=== PATIENT | male | born 1990 | race Caucasian/White ===

== ENCOUNTER 2016-04-30 10:33 | Emergency (ER) | payer SELFPAY ==
[2016-04-30] MEDS ORDERED: ONDANSETRON ODT 4 MG TABLET TL STA (12:48)
[2016-04-30] MEDS ORDERED: IBUPROFEN 800 MG TABLET PO STA (12:48)
[2016-04-30] MEDS ORDERED: OSELTAMIVIR 75 MG CAPSULE PO STA (12:49)
[2016-04-30] MEDS ORDERED: ONDANSETRON ODT 4 MG TABLET ONE (12:55)
[2016-04-30] MEDS ORDERED: IBUPROFEN 800 MG TABLET PO ONE (12:56)
[2016-04-30] MEDS ORDERED: OSELTAMIVIR 75 MG CAPSULE PO ONE (12:56)
== END 2016-04-30 13:19 | disposition home or self-care (01) ==
DX: J10.1 Influenza due to other identified influenza virus with other respiratory manifestations (principal)
CPT/HCPCS: 71020; 87275; 87276; 99283; 99284; A9270; Q0162

== ENCOUNTER 2016-09-12 06:19 | Emergency (ER) | payer SELFPAY ==
[2016-09-12] MEDS ORDERED: DEXAMETHASONE 10 MG/ML VIAL PO STA (06:32)
[2016-09-12] MEDS ORDERED: IBUPROFEN 800 MG TABLET PO STA (06:32)
[2016-09-12] MEDS ORDERED: DEXAMETHASONE 10 MG/ML VIAL ONE (06:34)
[2016-09-12] MEDS ORDERED: IBUPROFEN 800 MG TABLET PO ONE (06:34)
--- NOTE | 2016-09-12 06:35 | ED Physician Documentation ---
PD HPI HEENT - Stated complaint Stated Complaint: SOA - Chief complaint Chief Complaint: Heent - History obtained from History obtained from: Patient - History of Present Illness Timing - onset: Today Timing - details: Still present in ED Location: Right ear, Throat Worsens: Swalllowing Associated symptoms: Headache. No: Fever, Cough Similar symptoms before: Has not had sx before - Additional information Additional information: The patient is an otherwise healthy 26-year-old male who presents with sore throat that started this morning. He reports associated pain in his right ear as well as headache. He denies cough or shortness of breath. He reports mild nausea, without vomiting or abdominal pain. He denies history of similar symptoms in the past. His cousin reported similar symptoms earlier this week. Review of Systems Constitutional: denies: Fever Eyes: denies: Irritation Ears: reports: Ear pain (Right ear) Nose: denies: Congestion Throat: reports: Sore throat Cardiac: denies: Chest pain / pressure Respiratory: denies: Dyspnea, Cough GI: reports: Nausea. denies: Abdominal Pain, Vomiting : denies: Dysuria Skin: denies: Rash Musculoskeletal: denies: Back pain Neurologic: reports: Headache PD PAST MEDICAL HISTORY - Past Medical History Cardiovascular: None Respiratory: None Neuro: None Endocrine/Autoimmune: None - Present Medications Home Medications: Ambulatory Orders Medication Instructions Recorded Confirmed Azithromycin [Zithromax] 250 mg PO DAILY #6 tablet 09/12/16 Neomycin/Polymyx/Hc Otic Drops 4 drops RIGHTEAR QID #1 bottle 09/12/16 [Cortisporin Ear Susp] Prednisone 20 mg PO DAILY #10 tablet 09/12/16 - Allergies Allergies/Adverse Reactions: Allergies Allergy/AdvReac Type Severity Reaction Status Date / Time No Known Drug Allergies Allergy Verified 04/30/16 10:51 - Social History Does the pt smoke?: Yes Smoking Status: Current every day smoker PD ED PE NORMAL - Vitals Vital signs reviewed: Yes (Borderline hypertension initially.) - General General: Alert and oriented X 3, Well developed/nourished - HEENT HEENT: Atraumatic, PERRL, EOMI, Other (Oropharynx is erythematous without exudates. Right external ear canal is positive for otitis externa. Left tympanic membrane and external auditory canal are normal.) - Neck Neck: Supple, no meningeal sign, Other (Enlarged anterior cervical nodes bilaterally.) - Cardiac Cardiac: RRR, No murmur - Respiratory Respiratory: No respiratory distress, Clear bilaterally - Abdomen Abdomen: Soft, Non tender - Derm Derm: No rash - Extremities Extremities: No edema, No calf tenderness / cord - Neuro Neuro: Alert and oriented X 3, No motor deficit Results - Vitals Vitals: Vital Signs - 24 hr 09/12/16 09/12/16 06:24 07:45 Temperature 36.6 C Heart Rate 60 66 Respiratory 16 18 Rate Blood Pressure 136/93 H 128/79 O2 Saturation 98 97 Oxygen O2 Source Room air - Labs Labs: Laboratory Tests 09/12/16 09/12/16 06:30 07:00 Infectious Smyth Assay NEGATIVE Group A Strep Rapid Negative PD MEDICAL DECISION MAKING - ED course Complexity details: reviewed results, re-evaluated patient, considered differential, d/w patient ED course: The patient's presentation is most consistent with acute viral pharyngitis. Rapid strep screen is negative, and Monospot is negative. His clinical exam does not suggest peritonsillar abscess. In addition his exam reveals right otitis externa with associated otitis media. Treatment in the emergency department included administration of dexamethasone 10 mg orally, ibuprofen 800 mg orally, and Zithromax 500 mg orally. He is being discharged with prescriptions for Zithromax, prednisone, and Cortisporin otic suspension. I discussed with him the expected course of illness, treatment and outpatient follow-up, as well as potentially worrisome signs or symptoms that should prompt reevaluation in the emergency department. Departure - Departure Disposition: 01 Home, Self Care Clinical Impression: Acute viral pharyngitis Right otitis media Qualifiers: Otitis media type: unspecified Chronicity: unspecified Qualified Code(s): H66.91 - Otitis media, unspecified, right ear Right otitis externa Qualifiers: Otitis externa type: unspecified type Chronicity: acute Qualified Code(s): H60.501 - Unspecified acute noninfective otitis externa, right ear Condition: Stable Instructions: ED Pharyngitis Viral, ED Otitis Media Acute Adult, ED Otitis Externa Follow-Up: [facility] [Provider Group] Prescriptions: Neomycin/Polymyx/Hc Otic Drops [Cortisporin Ear Susp] 4 drops RIGHTEAR QID #1 bottle Prednisone 20 mg PO DAILY #10 tablet Azithromycin [Zithromax] 250 mg PO DAILY #6 tablet Forms: Activity restrictions Discharge Date/Time: 09/12/16 07:45
[2016-09-12 06:45] LABS: RAPID STREP SCREEN REAGENT QC YELLOW (YELLOW)
[2016-09-12 07:16] LABS: MONO NEG QC NEGATIVE (Negative); MONO POS QC POSITIVE (Positive)
[2016-09-12] MEDS ORDERED: AZITHROMYCIN 250 MG TABLET PO ONE (07:37)
[2016-09-12] MEDS ORDERED: AZITHROMYCIN 250 MG TABLET PO STA (07:37)
[2016-09-12 07:45] VITALS: BP 128/79
== END 2016-09-12 07:45 | disposition home or self-care (01) ==
LOC: ED 06:19
DX: J04.0 Acute laryngitis (principal); B34.9 Viral infection, unspecified; H66.91 Otitis media, unspecified, right ear; H60.501 Unspecified acute noninfective otitis externa, right ear
CPT/HCPCS: 86308; 87070; 87430; 99283; A9270

== ENCOUNTER 2017-01-01 09:42 | Emergency (ER) | payer SELFPAY ==
[2017-01-01] MEDS ORDERED: DEXAMETHASONE 10 MG/ML VIAL PO STA (10:55)
--- NOTE | 2017-01-01 10:58 | ED Physician Documentation ---
PD HPI LOWER EXT INJURY - Stated complaint Stated Complaint: LT ANKLE INJ/GLF - Chief complaint Chief Complaint: General - History obtained from History obtained from: Patient - History of Present Illness PD HPI LOW EXT INJURY LOCATION: Left, Ankle Type of injury: Fall, Twist Where injury occurred: Home Timing - onset: Last night Timing - duration: Hours Timing - details: Abrupt onset, Still present Improved by: Rest, Immobilization Worsened by: Moving, Palpating Associated symptoms: Swelling. No: Weakness, Numbness Contributing factors: No: Anticoagulated Similar symptoms before: Has not had sx before Recently seen: Not recently seen - Additional information Additional information: 26-year-old male with a history of one prior seizure 10 years ago thinks that last night as he was walking in his home he had a seizure his legs crumbled on him and his ankle folded back. He has significant pain in his ankle today. He is able walk. He does state that he did have some drinks last night and he denies alcohol withdrawal. He has had an upper respiratory infection with cough and congestion for the past week. He was never evaluated for his seizure 10 years ago. Review of Systems Constitutional: denies: Fever, Chills, Myalgias Eyes: denies: Decreased vision Ears: denies: Ear pain Nose: reports: Rhinorrhea / runny nose, Congestion Throat: reports: Sore throat Cardiac: denies: Chest pain / pressure, Palpitations Respiratory: reports: Cough. denies: Dyspnea GI: denies: Abdominal Pain, Nausea, Vomiting : denies: Dysuria, Frequency Musculoskeletal: reports: Joint pain, Joint swelling, Pain with weight bearing Neurologic: reports: Seizure. denies: Generalized weakness, Focal weakness, Numbness, Headache, Head injury, LOC PD PAST MEDICAL HISTORY - Past Medical History Cardiovascular: None Respiratory: None Neuro: None, Other Endocrine/Autoimmune: None Other Past Medical History: Pt had a seizure when he was 16. - Past Surgical History Past Surgical History: No - Present Medications Home Medications: Ambulatory Orders Medication Instructions Recorded Confirmed Amox/Clav 875/125 [Augmentin] 1 each PO Q12H #20 tablet 01/01/17 - Allergies Allergies/Adverse Reactions: Allergies Allergy/AdvReac Type Severity Reaction Status Date / Time No Known Drug Allergies Allergy Verified 04/30/16 10:51 - Social History Does the pt smoke?: Yes Smoking Status: Former smoker Does the pt drink ETOH?: Yes Does the pt have substance abuse?: No - Immunizations Immunizations are current?: Yes PD ED PE NORMAL - Vitals Vital signs reviewed: Yes (hypertensive ) - General General: Alert and oriented X 3, No acute distress, Well developed/nourished - HEENT HEENT: Atraumatic, PERRL, EOMI, Moist mucous membranes, Pharynx benign, Other ( both TM's are inflamed along the umbo ) - Neck Neck: Supple, no meningeal sign, No bony TTP - Cardiac Cardiac: RRR, No murmur - Respiratory Respiratory: No respiratory distress, Clear bilaterally - Abdomen Abdomen: Soft, Non tender - Back Back: No CVA TTP, No spinal TTP - Derm Derm: Normal color, Warm and dry, No rash - Extremities Extremities: No deformity, No edema - Neuro Neuro: No motor deficit, No sensory deficit - Psych Psych: Normal mood, Normal affect Results - Vitals Vitals: Vital Signs - 24 hr 01/01/17 09:43 Temperature 36.7 C Heart Rate 94 Respiratory 14 Rate Blood Pressure 134/91 H O2 Saturation 98 Oxygen O2 Source Room air - Rads (name of study) Left ankle Radiology: Prelim report reviewed (Impression: 1. Normal alignment of the ankle without evidence for acute fractures or dislocations.), EMP read indepedently, See rad report PD MEDICAL DECISION MAKING - ED course Complexity details: reviewed old records, reviewed results, re-evaluated patient , considered differential, d/w patient ED course: 26-year-old male with an ankle sprain last night thinks that he may have had a seizure. Today on examination he has some tenderness to the ligaments of the ankle and an x-ray without evidence of fracture. He is placed into an ankle stirrup for ankle sprain. On examination the patient does have otitis media bilaterally and he does have symptoms on review of system. Since this is a frequent trigger for seizure aggressive treatment is thought and the patient is administered dexamethasone 10 mg orally we will put him on some Augmentin. This patient's description of what he thought might be a seizure is investigated further and I am not convinced this is a seizure. He indicates that he got up at 2:30 in the morning to let his dog out and on his way back in he had an episode where he felt lightheaded and dizzy and then collapsed. This is when he sprained his ankle. He does not describe any period of loss of consciousness or absence of timeframe. Indicates that immediately prior to the near-syncope he had been urinating outside. I suspect this may be some component of micturition syncope and not a seizure. Departure - Departure Disposition: 01 Home, Self Care Clinical Impression: Syncope, near Otitis media Qualifiers: Otitis media type: suppurative Chronicity: acute Laterality: bilateral Recurrence: not specified as recurrent Spontaneous tympanic membrane rupture: without spontaneous rupture Qualified Code(s): H66.003 - Acute suppurative otitis media without spontaneous rupture of ear drum, bilateral Condition: Stable Instructions: ED Otitis Media Acute Adult, ED Near Syncope Vasovagal Follow-Up: [facility] [Provider Group] Prescriptions: Amox/Clav 875/125 [Augmentin] 1 each PO Q12H #20 tablet Forms: Activity restrictions
[2017-01-01] MEDS ORDERED: DEXAMETHASONE 10 MG/ML VIAL ONE (11:04)
--- NOTE | 2017-01-01 11:07 | XRAY Preliminary Report ---
Exam: XR ANKLE 3 VIEW LT IMPRESSION: 1. Normal alignment of the ankle without evidence for acute fractures or dislocations. [facility] SITE ID: [id number]
--- NOTE | 2017-01-01 11:10 | XRAY Report ---
EXAM: LEFT ANKLE RADIOGRAPHY EXAM DATE: 01/01/2017 10:40 AM. CLINICAL HISTORY: Pain s/p fall . COMPARISON: None. TECHNIQUE: 3 views. FINDINGS: Bones: Remote second and third metatarsal fractures are seen.. No acute fractures or bone lesions. Joints: Normal. No effusion. No subluxations. The ankle mortise is normally aligned. Soft Tissues: Normal. No soft tissue swelling. IMPRESSION: 1. Normal alignment of the ankle without evidence for acute fractures or dislocations. [facility] Referring Provider Line: [phone] SITE ID: [id number]
[2017-01-01 12:20] VITALS: BP 129/85
== END 2017-01-01 12:20 | disposition home or self-care (01) ==
LOC: ED 09:42
DX: R55 Syncope and collapse (principal); H66.003 Acute suppurative otitis media without spontaneous rupture of ear drum, bilateral; S93.402A Sprain of unspecified ligament of left ankle, initial encounter; W18.30XA Fall on same level, unspecified, initial encounter; X50.1XXA Overexertion from prolonged static or awkward postures, initial encounter; Y93.01 Activity, walking, marching and hiking; Y92.009 Unspecified place in unspecified non-institutional (private) residence as the place of occurrence of the external cause; Z87.891 Personal history of nicotine dependence
CPT/HCPCS: 99283

== ENCOUNTER 2018-02-19 07:29 | Outpatient (CLI) | payer OTHER ==
[2018-02-19 11:10] LABS: ALBUMIN 4.6 g/dL (3.2-5.5); ALBUMIN/GLOBULIN RATIO 1.5 (1.0-2.2); ALKALINE PHOSPHATASE 51 IU/L (42-121); ALT ALANINE AMINOTRANSFERASE 46 IU/L (10-60); AST ASPARTATE AMINOTRANSFERASE 29 IU/L (10-42); BILIRUBIN,TOTAL 1.4 mg/dL (0.2-1.0); BUN - BLOOD UREA NITROGEN 13 mg/dL (6-20); CALCIUM 9.4 mg/dL (8.5-10.3); CARBON DIOXIDE - CO2 28 mmol/L (21-32); CHLORIDE 102 mmol/L (101-111); CHOL/HDL RATIO 2.7 (<5.0); CHOLESTEROL 178 mg/dL; CREATININE 0.8 mg/dL (0.6-1.2); GFR - MDRD 114 (>89); GLUCOSE 99 mg/dL (70-100); HDL CHOLESTEROL 66 mg/dL; LDL CHOLESTEROL,CALCULATED 93 mg/dL; LDL/HDL RATIO 1.4 (<3.6); SODIUM 135 mmol/L (135-145); TOTAL PROTEIN 7.6 g/dL (6.7-8.2); VLDL CHOLESTEROL 19 mg/dL
[2018-02-19 11:51] LABS: BASOPHILS # (AUTO) 0.1 10^3/uL (0.0-0.1); BASOPHILS % (AUTO) 0.8 %; EOSINOPHILS # (AUTO) 0.5 10^3/uL (0.0-0.7); EOSINOPHILS % (AUTO) 6.7 %; HGB - HEMOGLOBIN 17.1 g/dL (14.0-18.0); LYMPHOCYTES # (AUTO) 1.6 10^3/uL (1.5-3.5); LYMPHOCYTES % (AUTO) 20.8 %; MEAN CORPUSCULAR HEMOGLOBIN 31.1 pg (27.0-31.0); MEAN CORPUSCULAR VOLUME 88.8 fL (80.0-94.0); MEAN PLATELET VOLUME 9.4 fL (7.4-11.4); MONOCYTES # (AUTO) 0.6 10^3/uL (0.0-1.0); MONOCYTES % (AUTO) 8.3 %; NEUTROPHILS # (AUTO) 4.9 10^3/uL (1.5-6.6); NEUTROPHILS % (AUTO) 63.4 %; PLT - PLATELET COUNT 212 10^3/uL (130-450); RED CELL DISTRIBUTION WIDTH 12.9 % (12.0-15.0); WHITE BLOOD COUNT 7.7 x10^3/uL (4.8-10.8)
== END 2018-02-19 07:30 | disposition home or self-care (01) ==
LOC: LAB.F 07:29
PROVIDERS: ATTEND Physician Assistant Medical
DX: Z00.00 Encounter for general adult medical examination without abnormal findings (principal); Z72.89 Other problems related to lifestyle; Z13.29 Encounter for screening for other suspected endocrine disorder; Z13.220 Encounter for screening for lipoid disorders
CPT/HCPCS: 36415; 80053; 80061; 83721; 84443; 85025

== ENCOUNTER 2018-08-20 16:55 | Outpatient (CLI) | payer OTHER ==
--- NOTE | 2018-08-21 08:43 | XRAY Report ---
Reason: JOINT CREPITUS KNEE,LEFT,KNEE SWELLING Procedure Date: 08/20/2018 Accession Number: [id number] / [id number] Procedure: XR - Knee 3 View LT CPT Code: FULL RESULT: EXAM: LEFT KNEE RADIOGRAPHY EXAM DATE: 08/20/2018 05:10 PM. CLINICAL HISTORY: Left knee pain. COMPARISON: None. TECHNIQUE: 3 views. FINDINGS: Bones: Normal. No fractures or bone lesions. Joints: Normal. No effusion. No subluxations. Soft Tissues: Normal. No soft tissue swelling. IMPRESSION: Normal knee radiography. [facility]
== END 2018-08-20 16:56 | disposition home or self-care (01) ==
LOC: DI 16:55
PROVIDERS: ATTEND Nurse Practitioner
DX: M25.862 Other specified joint disorders, left knee (principal); M25.469 Effusion, unspecified knee

== ENCOUNTER 2020-02-26 13:25 | Outpatient (CLI) | payer OTHER ==
--- NOTE | 2020-02-26 13:56 | XRAY Report ---
PROCEDURE: Shoulder 3 View RT INDICATIONS: SHOULDER JOINT PAIN, RIGHT TECHNIQUE: 3 views of the shoulder were acquired. COMPARISON: None. FINDINGS: Bones: No fractures or dislocations. No suspicious bony lesions. Visualized ribs appear intact. Soft tissues: No suspicious soft tissue calcifications. IMPRESSION: Normal right shoulder Reviewed by: Don Wilson on 02/26/2020 1:54 PM [facility] Approved by: Don Wilson on 02/26/2020 1:54 PM [facility] Station ID: [id number]
== END 2020-02-26 23:59 | disposition home or self-care (01) ==
LOC: DI.S 13:25
PROVIDERS: ATTEND Physician Assistant
DX: S46.011A Strain of muscle(s) and tendon(s) of the rotator cuff of right shoulder, initial encounter (principal)

== ENCOUNTER 2020-11-06 12:26 | Outpatient (CLI) | payer OTHER | END 2020-11-06 23:59 | disposition home or self-care (01) | LOC: LAB.N 12:26 | PROVIDERS: ATTEND Nurse Practitioner | DX: R05 Cough (principal); Z20.822 Contact with and (suspected) exposure to COVID-19 ==

== ENCOUNTER 2023-08-01 20:04 | Outpatient (CLI) | payer BC | END 2023-08-01 20:05 | disposition critical access hospital (66) | LOC: EMS 20:04 | DX: Z04.6 Encounter for general psychiatric examination, requested by authority (principal); S00.83XA Contusion of other part of head, initial encounter; S61.412A Laceration without foreign body of left hand, initial encounter; X83.8XXA Intentional self-harm by other specified means, initial encounter; Y92.009 Unspecified place in unspecified non-institutional (private) residence as the place of occurrence of the external cause; F10.90 Alcohol use, unspecified, uncomplicated | CPT/HCPCS: A0425; A0429 ==

== ENCOUNTER 2023-08-01 20:20 | Emergency (ER) | payer BC, OTHER ==
[2023-08-01 21:31] LABS: BASOPHILS # (AUTO) 0.1 10^3/uL (0.0-0.1); BASOPHILS % (AUTO) 0.8 %; EOSINOPHILS # (AUTO) 0.1 10^3/uL (0.0-0.7); EOSINOPHILS % (AUTO) 1.2 %; HCT - HEMATOCRIT 49.6 % (42.0-52.0); HGB - HEMOGLOBIN 17.2 g/dL (14.0-18.0); LYMPHOCYTES # (AUTO) 2.3 10^3/uL (1.5-3.5); MEAN CORPUSCULAR HEMOGLOBIN 29.5 pg (27.0-31.0); MEAN CORPUSCULAR HGB CONC 34.7 g/dL (32.0-36.0); MEAN CORPUSCULAR VOLUME 85.1 fL (80.0-94.0); MEAN PLATELET VOLUME 9.8 fL (7.4-11.4); MONOCYTES # (AUTO) 0.6 10^3/uL (0.0-1.0); MONOCYTES % (AUTO) 6.7 %; NEUTROPHILS # (AUTO) 5.3 10^3/uL (1.5-6.6); NEUTROPHILS % (AUTO) 63.1 %; PLT - PLATELET COUNT 281 10^3/uL (130-450); RED BLOOD COUNT 5.83 10^6/uL (4.70-6.10); RED CELL DISTRIBUTION WIDTH 12.4 % (12.0-15.0); WHITE BLOOD COUNT 8.3 x10^3/uL (4.8-10.8)
--- NOTE | 2023-08-01 21:31 | ED Physician Documentation ---
PD HPI HEAD INJURY - Stated complaint Stated Complaint: HEAD INJ - Chief complaint Chief Complaint: Trauma Hd/Nk - Additional information Additional information: 33-year-old male with history of alcohol dependence presents emergency departmen t via EMS for a very large forehead hematoma. Patient reports that he got a big fight with his today because she wanted to go to [employer] with her friends patient says that he felt that this was disrespectful and so he started drinking large amount of alcohol and smashing his head into everything he could come in contact with per patient. Patient said that he is going to kill himself sent multiple pictures to his of him drinking alcohol pouring gasoline on himself and saying that he was going to kill himself. When patient arrived he said "I wasn't going to do it I just wanted my to love me" Patient has a very large hematoma to his forehead according to his who told the police she did see him lose consciousness for a period of time but she is unsure how long. is not here at bedside for me to speak with all information was received from the patient as well as the diesel scoop operator who is at bedside. Patient currently denies any suicidal ideation for myself but he does report to the nurse that he was having some passive suicidal ideation. Patient denies any homicidal ideation. PD PAST MEDICAL HISTORY - Past Medical History Cardiovascular: None Respiratory: None Endocrine/Autoimmune: None - Past Surgical History Past Surgical History: No - Present Medications Home Medications: Ambulatory Orders Medication Instructions Recorded Confirmed No Known Home Medications 08/01/23 08/01/23 - Allergies Allergies/Adverse Reactions: Allergies Allergy/AdvReac Type Severity Reaction Status Date / Time No Known Drug Allergies Allergy Verified 08/01/23 20:31 - Social History Does the pt smoke?: Yes Smoking Status: Current every day smoker Does the pt drink ETOH?: Yes Does the pt have substance abuse?: No - Immunizations Immunizations are current?: Yes - POLST Patient has POLST: No PD ED PE NORMAL - Vitals Vital signs reviewed: Yes - General General: Alert and oriented X 3 - HEENT HEENT: PERRL, Other (very large hematoma to forhead, about 10cm in width protruding from scalp.) - Neck Neck: No bony TTP - Cardiac Cardiac: RRR - Respiratory Respiratory: No respiratory distress - Abdomen Abdomen: Normal bowel sounds - Neuro Neuro: Alert and oriented X 3, agricultural produce washer 2-12 intact, No motor deficit, No sensory deficit, Normal speech Eye Opening: Spontaneous Motor: Obeys Commands Verbal: Oriented GCS Score: 15 PD ED PE EXPANDED - Psych Psych: Intoxicated / AOB, Depressed, Suicidal, Tearful, Anxious, Agitated, Manic, Pressured speech. No: Homicidal Results - Vitals Vitals: Vital Signs - 24 hr 08/01/23 20:25 Temperature 37.0 C Heart Rate 89 Respiratory 16 Rate Blood Pressure 127/96 H O2 Saturation 95 Oxygen O2 Source Room air - Labs Labs: Laboratory Tests 08/01/23 08/01/23 08/01/23 21:25 21:25 21:25 WBC 8.3 RBC 5.83 Hgb 17.2 Hct 49.6 MCV 85.1 MCH 29.5 MCHC 34.7 RDW 12.4 Plt Count 281 MPV 9.8 Neut # (Auto) 5.3 Lymph # (Auto) 2.3 Cottle # (Auto) 0.6 Eos # (Auto) 0.1 Baso # (Auto) 0.1 Absolute Nucleated RBC 0.00 Nucleated RBC % 0.0 Sodium 141 Potassium 3.7 Chloride 107 Carbon Dioxide 25 Anion Gap 9.0 BUN 12 Creatinine 0.9 Estimated GFR (MDRD) 96 Glucose 102 Calcium 10.0 Magnesium 1.8 Total Bilirubin 1.7 H AST 24 ALT 21 Alkaline Phosphatase 37 L Total Creatine Kinase Total Protein 7.9 Albumin 5.2 Globulin 2.7 Albumin/Globulin Ratio 1.9 Lipase 29 TSH Urine Color Urine Clarity Urine pH Ur Specific [place] Urine Protein Urine Glucose (UA) Urine Ketones Urine Occult Blood Urine Nitrite Urine Bilirubin Urine Urobilinogen Ur Leukocyte Esterase Ur Microscopic Review Urine Culture Comments Salicylates Urine Opiates Screen NEGATIVE Ur Buprenorphine Scrn NEGATIVE Ur Oxycodone Screen NEGATIVE Urine Methadone Screen NEGATIVE Acetaminophen Ur Barbiturates Screen NEGATIVE Ur Tricyclics Screen NEGATIVE Ur Phencyclidine Scrn NEGATIVE Ur Amphetamine Screen NEGATIVE U Methamphetamines Scrn NEGATIVE U Benzodiazepines Scrn NEGATIVE Urine Cocaine Screen NEGATIVE U Cannabinoids Screen NEGATIVE Ur Drug Screen Comment CUTOFF CONC BELOW: Ethyl Alcohol 253.3 08/01/23 08/01/23 21:25 21:25 WBC RBC Hgb Hct MCV MCH MCHC RDW Plt Count MPV Neut # (Auto) Lymph # (Auto) Cottle # (Auto) Eos # (Auto) Baso # (Auto) Absolute Nucleated RBC Nucleated RBC % Sodium Potassium Chloride Carbon Dioxide Anion Gap BUN Creatinine Estimated GFR (MDRD) Glucose Calcium Magnesium Total Bilirubin AST ALT Alkaline Phosphatase Total Creatine Kinase 235 H Total Protein Albumin Globulin Albumin/Globulin Ratio Lipase TSH 1.38 Urine Color YELLOW Urine Clarity CLEAR Urine pH 6.0 Ur Specific [place] <=1.005 Urine Protein NEGATIVE Urine Glucose (UA) NEGATIVE Urine Ketones NEGATIVE Urine Occult Blood NEGATIVE Urine Nitrite NEGATIVE Urine Bilirubin NEGATIVE Urine Urobilinogen 0.2 (NORMAL) Ur Leukocyte Esterase NEGATIVE Ur Microscopic Review NOT INDICATED Urine Culture Comments NOT INDICATED Salicylates < 1.5 Urine Opiates Screen Ur Buprenorphine Scrn Ur Oxycodone Screen Urine Methadone Screen Acetaminophen 0.2 Ur Barbiturates Screen Ur Tricyclics Screen Ur Phencyclidine Scrn Ur Amphetamine Screen U Methamphetamines Scrn U Benzodiazepines Scrn Urine Cocaine Screen U Cannabinoids Screen Ur Drug Screen Comment Ethyl Alcohol - Rads (name of study) Head CT without Relevant Findings:: Final report received, EMP independent interpretation of test, Other (Large scalp hematoma. Concern for small focus of petechial hemorrhage on the right frontal lobe) PD Medical Decision Making - ED course ED course: 33-year-old male appears to be quite intoxicated presents emergency department for head injury. Patient is quite hostile and agitated he repeats over and over again " my is a whore and I am allowed to be mad!" CT head without was complete which reveals large scalp hematoma and concern for small focus of petechial hemorrhage on the right frontal lobe. CT cervical was also complete unfortunately those results have not been read yet and x-ray of left hand is also been ordered but given how agitated and worked up patient is we are holding off until patient calms down. 2 mg Ativan 5 mg Haldol ordered for patient's agitation And hostility. Labs also complete no leukocytosis no anemia no significant electrolyte abnormalities, urinalysis is unremarkable negative for urine drug screen, alcohol level is at 253.3 I have reached out to [facility] transfer radford to speak with [facility] if she is pushing imaging over to neurosurgery for further evaluation to get that opinion about the CT read. CT cervical still pending. I given report to Dr. Rose he will be further managing patient's care and will be watching for her hand x-rays and CT cervical and will speak with [facility] neurology. Departure - Departure Forms: PCP List
[2023-08-01 21:43] LABS: BILIRUBIN,URINE NEGATIVE (NEGATIVE); GLUCOSE, URINE (UA) NEGATIVE (NEGATIVE); KETONES,URINE (UA) NEGATIVE (NEGATIVE); LEUKOCYTE ESTERASE, URINE NEGATIVE (NEGATIVE); NITRITE,URINE NEGATIVE (NEGATIVE); OCCULT BLOOD,URINE NEGATIVE (NEGATIVE); PROTEIN,URINE NEGATIVE (NEGATIVE); UROBILINOGEN,URINE 0.2 (NORMAL) E.U./dL (NORMAL)
[2023-08-01 21:44] LABS: CLARITY,URINE CLEAR (CLEAR)
[2023-08-01 21:45] LABS: AMPHETAMINE SCREEN,URINE NEGATIVE (NEGATIVE); BARBITURATE SCREEN,UR NEGATIVE (NEGATIVE); BENZODIAZEPINES SCREEN, URINE NEGATIVE (NEGATIVE); BUPRENORPHINE SCREEN, URINE NEGATIVE (NEGATIVE); COCAINE SCREEN URINE NEGATIVE (NEGATIVE); METHADONE SCREEN, URINE NEGATIVE (NEGATIVE); METHAMPHETAMINES SCREEN, URINE NEGATIVE (NEGATIVE); OPIATE SCREEN, URINE NEGATIVE (NEGATIVE); OXYCODONE SCREEN, URINE NEGATIVE (NEGATIVE); THC CANNABINOID SCREEN, URINE NEGATIVE (NEGATIVE); TRICYCLIC ANTIDEPRESSANT,URINE NEGATIVE (NEGATIVE)
[2023-08-01 21:47] LABS: ALBUMIN 5.2 g/dL (3.2-5.5); ALBUMIN/GLOBULIN RATIO 1.9 (1.0-2.2); BILIRUBIN,TOTAL 1.7 mg/dL (0.2-1.0); CREATININE 0.9 mg/dL (0.6-1.3); ETOH - ETHANOL 253.3 mg/dL; MAGNESIUM 1.8 mg/dL (1.7-2.3); POTASSIUM 3.7 mmol/L (3.5-4.5); TOTAL PROTEIN 7.9 g/dL (6.4-8.9)
--- NOTE | 2023-08-01 21:52 | CT Report ---
PROCEDURE: Head WO INDICATIONS: intoxicated, head injury TECHNIQUE: Noncontrast 4.5 mm thick angled axial sections acquired from the foramen magnum to the vertex. For r adiation dose reduction, the following was used: automated exposure control, adjustment of mA and/or kV according to patient size. COMPARISON: None. FINDINGS: Image quality: Excellent. CSF spaces: Basal cisterns are patent. No extra-axial fluid collections. Ventricles are normal in size and shape. Brain: No midline shift. No intracranial masses. Subtle increased density in the right parafalcine frontal lobe, (2/10). Coyne-white matter interface is normal. Skull and face: Calvarium and visualized facial bones are intact, without suspicious lesions. Forehe ad hematoma. Sinuses: Visualized sinuses and mastoids are clear. IMPRESSION: Concern for small focus of petechial hemorrhage in the right frontal lobe. Forehead scalp hematoma. Results were communicated to Dr. Maribel Paulino at 08/01/2023 9:50 PM PDT. Reviewed by: Arcenio Montano MD on 08/01/2023 9:51 PM PDT Approved by: Arcenio Montano MD on 08/01/2023 9:51 PM PDT Station ID: [id number]
[2023-08-01 21:59] LABS: ACETAMINOPHEN 0.2 ug/mL; CK- CREATINE KINASE 235 IU/L (30-223)
[2023-08-01] MEDS: NICOTINE 21 MG PATCH TOP STA (22:09)
[2023-08-01 22:13] LABS: SALICYLATE < 1.5 mg/dL; THYROID STIMULATING HORMONE 1.38 uIU/mL (0.34-5.60)
[2023-08-01] MEDS ORDERED: HALOPERIDOL 5 MG/ML VIAL IVP STA (22:15)
[2023-08-01] MEDS: HALOPERIDOL 5 MG/ML VIAL IVP STA (22:23)
[2023-08-01] MEDS: LORazepam 2 MG/ML VIAL IVP STA (22:23)
--- NOTE | 2023-08-01 22:57 | CT Report ---
PROCEDURE: Cervical Spine WO INDICATIONS: intoxicated head injury, LOC TECHNIQUE: Noncontrast 3 mm thick sections acquired from the skull base to the T4 level. Sagittal and coronal r eformats were then constructed. For radiation dose reduction, the following was used: automated exp osure control, adjustment of mA and/or kV according to patient size. COMPARISON: None. FINDINGS: Image quality: Excellent. Bones: No fractures or dislocations. Visualized superior ribs are intact. Soft tissues: Prevertebral soft tissues are normal in thickness. No paravertebral hematomas. No ap ical pneumothoraces. IMPRESSION: No acute osseous abnormality. Reviewed by: Arcenio Montano MD on 08/01/2023 10:55 PM PDT Approved by: Arcenio Montano MD on 08/01/2023 10:55 PM PDT Station ID: [id number]
--- NOTE | 2023-08-01 23:00 | XRAY Report ---
PROCEDURE: Hand 1-2V LT INDICATIONS: left hand swelling TECHNIQUE: 2 views of the hand(s) acquired. COMPARISON: None. FINDINGS: Bones: No fractures or dislocations. No suspicious bony lesions. Soft tissues: No suspicious soft tissue calcifications or masses. IMPRESSION: No acute bony abnormality. Reviewed by: Arcenio Montano MD on 08/01/2023 10:59 PM PDT Approved by: Arcenio Montano MD on 08/01/2023 10:59 PM PDT Station ID: [id number]
--- NOTE | 2023-08-02 01:17 | CT Report ---
PROCEDURE: Head WO INDICATIONS: ICH, follow-up CT TECHNIQUE: Noncontrast 4.5 mm thick angled axial sections acquired from the foramen magnum to the vertex. For r adiation dose reduction, the following was used: automated exposure control, adjustment of mA and/or kV according to patient size. COMPARISON: Head CT 08/01/2023 at 2051 hours. FINDINGS: Image quality: Excellent. CSF spaces: Basal cisterns are patent. No extra-axial fluid collections. Ventricles are normal in size and shape. Brain: No midline shift. No intracranial masses. Focus of density in the right frontal lobe seen on the prior CT is no longer seen. Coyne-white matter interface is normal. Skull and face: Calvarium and visualized facial bones are intact, without suspicious lesions. Large forehead hematoma. Sinuses: Visualized sinuses and mastoids are clear. IMPRESSION: Suspected hemorrhage at the right frontal lobe is no longer seen. Large forehead hematoma. Reviewed by: Arcenio Montano MD on 08/02/2023 1:15 AM PDT Approved by: Arcenio Montano MD on 08/02/2023 1:15 AM PDT Station ID: [id number]
--- NOTE | 2023-08-02 09:42 | ED Physician Documentation ---
ED Addendum - Addendum Addendum: 08/02/23 09:42 Care from overnight emergency physician at 7 AM shift change. We were waiting for his blood alcohol to be below 80. It is at this time and now awaiting social work evaluation Seen by WILLIS, pt voluntary. Delay to dispo as needs emergency medicaid. 08/02/23 19:57 Care to overnight EDMD @1900
--- NOTE | 2023-08-02 11:23 | PHARMACY PROGRESS NOTE ---
- Best Possible Medication History Admit Date and Time: Processed by: Pharmacy Medications reviewed in ED?: Yes Medication History completed: Yes Patient Interview: Completed As the person ultimately responsible for medication therapy, providers are able to order a medication from an existing home medication list in [facility] via the "Reconcile Routine" prior to Confirmation of that medication by sales support engineer. Such practice is discouraged except when the physician, in their clinical judgment, deems that a medical need exists for a medication without regard to previous use.
[2023-08-03] MEDS: ACETAMINOPHEN 325 MG TABLET PO STA ×2 (05:08→05:14)
[2023-08-03] MEDS: NICOTINE 21 MG PATCH TOP STA (11:17)
--- NOTE | 2023-08-03 14:37 | ED Physician Documentation ---
ED Addendum - Addendum Addendum: 08/03/23 14:36 Patient was signed out to me at change of shift, continuing to pend mental health inpatient placement. The placement has been delayed, secondary to the patient not having insurance and social work is continue to work with the patient and his case on this. At this point in time, the patient has been stable, calm, and cooperative without any further outbursts. He has not displayed any symptoms or signs of alcohol withdrawal. The patient will remain in the emergency department until a final disposition has been made. For now, he is signed out to the oncoming emergency physician, continuing to pend this.
[2023-08-03 15:28] VITALS: BP 122/90; O2SAT 100
== END 2023-08-03 16:24 ==
LOC: ED 20:20
DX: S06.9X9A Unspecified intracranial injury with loss of consciousness of unspecified duration, initial encounter (principal); S00.83XA Contusion of other part of head, initial encounter; W22.8XXA Striking against or struck by other objects, initial encounter; F10.229 Alcohol dependence with intoxication, unspecified; Y90.8 Blood alcohol level of 240 mg/100 ml or more; R45.851 Suicidal ideations; F32.A Depression, unspecified; F41.9 Anxiety disorder, unspecified; Z75.1 Person awaiting admission to adequate facility elsewhere
CPT/HCPCS: 36415; 70450; 72125; 73120; 80053; 80143; 80179; 80306; 81003; 82077; 82550; 83690; 83735; 84443; 85025; 87635; 96374; 96375; 99284; 99285; A9270; J2060; 81001; 87086